=== PATIENT | female | born 1940 | race Caucasian/White ===

== ENCOUNTER → 2023-11-24 10:00 | Outpatient (REF) | payer OTHER, SELFPAY | LOC: RAD 10:00 | PROVIDERS: ATTENDING PHYSICIAN Internal Medicine Gastroenterology | DX: R10.13 Epigastric pain (principal) | CPT/HCPCS: 74246; 74248 ==

== ENCOUNTER → 2024-07-26 10:08 | Outpatient (REF) | payer OTHER, SELFPAY | LOC: HWWDC 10:08 | PROVIDERS: ATTENDING PHYSICIAN Internal Medicine Geriatric Medicine; REFERRING PHYSICIAN Internal Medicine Cardiovascular Disease | DX: Z12.31 Encounter for screening mammogram for malignant neoplasm of breast (principal); R09.89 Other specified symptoms and signs involving the circulatory and respiratory systems | CPT/HCPCS: 77063; 77067; 93880 ==

== ENCOUNTER → 2025-02-19 11:32 | Outpatient (REF) | payer OTHER, SELFPAY | LOC: HWRAD 11:32 | PROVIDERS: ATTENDING PHYSICIAN Internal Medicine Cardiovascular Disease; REFERRING PHYSICIAN Internal Medicine Endocrinology, Diabetes & Metabolism | DX: R09.89 Other specified symptoms and signs involving the circulatory and respiratory systems (principal) | CPT/HCPCS: 93880 ==